=== PATIENT | female | born 1955 | race Caucasian/White ===

== ENCOUNTER 2021-03-07 15:58 | Outpatient (CLI) | payer MEDICARE, OTHER, SELFPAY | END 2021-03-07 15:59 | disposition home or self-care (01) | LOC: SPT 16:01 | PROVIDERS: Family Provider Nurse Practitioner Family; PCP Nurse Practitioner Family; Visit Provider Podiatrist Foot & Ankle Surgery | DX: Z46.89 Encounter for fitting and adjustment of other specified devices (principal); M76.72 Peroneal tendinitis, left leg | CPT/HCPCS: 97760; L4397 ==

== ENCOUNTER 2021-05-14 13:33 | Outpatient (CLI) | payer MEDICARE, OTHER, SELFPAY | END 2021-05-14 13:34 | disposition home or self-care (01) | LOC: SPT 13:34 | PROVIDERS: Family Provider Nurse Practitioner Family; PCP Nurse Practitioner Family; Visit Provider Podiatrist Foot & Ankle Surgery | DX: Z46.89 Encounter for fitting and adjustment of other specified devices (principal); M76.72 Peroneal tendinitis, left leg | CPT/HCPCS: 97760; L3030 ==

== ENCOUNTER → 2021-07-01 00:01 | Outpatient (BNVA) | payer MEDICARE, SELFPAY | PROVIDERS: Family Provider Nurse Practitioner Family; PCP Nurse Practitioner Family; Visit Provider Obstetrics & Gynecology | DX: N81.10 Cystocele, unspecified (principal) | CPT/HCPCS: 87086 ==

== ENCOUNTER 2021-08-06 12:53 | Outpatient (CLI) | payer MEDICARE, OTHER, SELFPAY ==
--- NOTE | 2021-08-06 13:06 | XR_ITS ---
WS: [id number] Lumbar spine, 3 views, 08/06/2021 Clinical Data: PAIN IN RIGHT LEG Comparison: None. Findings: No compression fractures or subluxation is seen. There is degenerative disc narrowing at L5-S1 with a 0.9 cm subluxation. Minimal osteoarthritis of the L1-L5 vertebral bodies is seen. The transverse pro cesses and SI joints are normal. XR/XR lumbar spine 2-3V* [id number] Impression: 1. Degenerative disc narrowing at L5-S1 with a 0.9 cm subluxation. 2. Minimal osteoarthritis from L1-L5 .
== END 2021-08-06 12:54 | disposition home or self-care (01) ==
LOC: RAD 12:56
PROVIDERS: PCP Nurse Practitioner Family; Visit Provider Nurse Practitioner Family
DX: M79.604 Pain in right leg (principal)
CPT/HCPCS: 72100

== ENCOUNTER 2021-10-18 10:41 | Outpatient (CLI) | payer MEDICARE, OTHER, SELFPAY ==
--- NOTE | 2021-10-18 11:05 | MM_ITS ---
WS: [id number] BILATERAL SCREENING DIGITAL MAMMOGRAM WITH CAD HISTORY: SCREENING COMPARISON: 03/17/2019 and 12/02/2017 Bilateral CC and MLO views submitted. Computer aided detection analyzed. Breast composition: There are scattered areas of fibroglandular density. No suspicious masses, microc alcifications or architectural distortion. MM/[place] [address] IMPRESSION: BI-RADS: 1-Negative FOLLOW UP: 1 Year Follow-up
== END 2021-10-18 10:42 | disposition home or self-care (01) ==
PROVIDERS: PCP Nurse Practitioner Family; Visit Provider Nurse Practitioner Family
DX: Z12.31 Encounter for screening mammogram for malignant neoplasm of breast (principal)
CPT/HCPCS: 77067

== ENCOUNTER → 2022-07-28 14:35 | Outpatient (BNVA) | payer MEDICARE, OTHER, SELFPAY | PROVIDERS: PCP Nurse Practitioner Family; Visit Provider Podiatrist Foot & Ankle Surgery | DX: M76.62 Achilles tendinitis, left leg (principal); M21.41 Flat foot [pes planus] (acquired), right foot; M21.42 Flat foot [pes planus] (acquired), left foot; M76.829 Posterior tibial tendinitis, unspecified leg | CPT/HCPCS: 73610; 99214 ==

== ENCOUNTER 2022-10-15 15:19 | Observation (INO) | payer MEDICARE, OTHER, SELFPAY ==
[2022-10-13 11:08] VITALS: BMI 35.1
[2022-10-13 11:48] LABS: Basophils % 0.5 %; Eosinophils % 0.5 %; Hematocrit 40.8 % (37.0-47.0); Lymphocytes # 2.1 10^3/uL (0.8-4.8); Lymphocytes % 31.9 %; Mean Corpuscular HGB Conc 31.9 g/dL (30.0-36.0); Mean Corpuscular Hemoglobin 28.6 pg (28.0-34.0); Mean Corpuscular Volume 89.7 fl (81-99); Mean Platelet Volume 9.8 fL (7.4-10.4); Monocytes # 0.3 10^3/uL (0.2-0.9); Neutrophils # 4.11 10^3/uL (1.8-7.7); Neutrophils % 61.9 %; Nucleated Red Blood Cells % 0 %; Platelet Count 222 10^3/cmm (130-400); Red Blood Count 4.55 10^6/uL (4.1-5.3); Red Cell Distribution Width 14.6 % (12.1-15.1); White Blood Count 6.6 10^3/uL (4.0-10.0)
[2022-10-13 11:59] LABS: INR 0.91 (0.8-1.2)
[2022-10-13 12:09] LABS: Add Urine Microscopic? YES; Alanine Aminotransferase 13 U/L (0-33); Alkaline Phosphatase 95 U/L (35-105); Anion Gap 12.3 (5-19); Aspartate Amino Transferase 16 U/L (0-32); Bilirubin Urine Neg (Negative); Blood Urea Nitrogen 17 mg/dL (8-23); Blood Urine 2+ (Negative); Calcium 9.8 mg/dL (8.5-10.5); Carbon Dioxide 28 mmol/L (22-29); Chloride 101 mmol/L (98-107); Globulin 3.2 g/dL (1.3-4.6); Glomerular Filtration Rate 122.3 mL/min (90-130); Glucose 97 mg/dL (65-115); Glucose Urine UA Norm (Normal); Ketones Urine Negative (Negative); Leukocyte Esterase Urine 2+ (Negative); Nitrate Urine Negative (Negative); Osmolality Calculated 285 mOsm/kg (285-295); Potassium 4.3 mmol/L (3.5-5.1); Protein Urine Neg (Negative); Sodium 137 mmol/L (136-145); Total Bilirubin 0.3 mg/dL (0.15-1.2); Total Protein 7.2 g/dL (6.6-8.7); Urine Appearance Clear (CLEAR); Urine Color Yellow (Yellow); Urobilinogen Urine Norm (Negative); pH Urine 6.5 (5-7)
[2022-10-13 12:10] LABS: Add Urine Culture? No; Bacteria Urine TRACE /hpf
--- NOTE | 2022-10-13 15:09 | P.ANESASSM_ITS ---
Pre-Anesthetic Assessment Height/Weight: Height 1.57 m Weight 87.09 kg Preop Diagnosis: Cystocele, stress urinary incontinence, vaginal prolapse Operation Date: 10/15/22 14:20 Proposed Procedures p Anterior colporrhaphy augmented with allograft 50348, Single incision mid- urethral sling 69671, N81.10(Not Applicable) - Nakul Carballo MD s Sling Single Incision Midurethral Sling(Not Applicable) - Nakul Carballo MD Familial anesthetic complications: none Was Beta Eugene taken within 24 hours: N/A Was Clonidine taken within 24 hours: N/A Social No alcohol and No tobacco Exam alert, oriented x 3, clear to auscultation bilaterally and regular rate & rhythm Airway Submandibular: within normal limits Cervical ROM: within normal limits Mallampati: Class II Dentition: full CV/HEM Hypertension GI Gastroesophageal Reflux Disease Metabolic Hyperlipidemia and Morbid Obesity Anesthetic Plan ASA status: 2 Anesthesia: General Medications/Allergies Home Medications Medication Instructions Recorded Confirmed Last Taken Type aspirin 81 mg tablet,delayed 81 mg PO DAILY 11/10/19 10/13/22 10/08/22 History release cetirizine 10 mg capsule (Zyrtec) 10 mg PO DAILY 07/01/21 10/13/22 10/12/22 History hydrochlorothiazide 12.5 mg tablet 25 mg PO DAILY 07/01/21 10/13/22 10/12/22 History irbesartan 150 mg tablet 150 mg PO DAILY 07/01/21 10/13/22 10/12/22 History multivitamin 1 tab PO DAILY 07/01/21 10/13/22 10/12/22 History omeprazole 20 mg capsule,delayed 20 mg PO .every other day 07/01/21 10/13/22 10/11/22 History release magnesium 200 mg tablet 200 mg PO DAILY 08/07/21 10/13/22 10/12/22 History muscle relaxer PO DAILY 08/07/21 10/13/22 Unknown History Custom Orthotics #1 ea 07/30/22 10/13/22 Unknown Rx fluticasone propionate 50 1 spray intranasal BID 09/09/22 10/13/22 Unknown History mcg/actuation nasal spray,suspension rosuvastatin 20 mg tablet 20 mg PO DAILY 09/09/22 10/13/22 10/12/22 History Allergies Allergy/AdvReac Type Severity Reaction Status Date / Time No Known Allergies Allergy Verified 10/13/22 09:34 [facility] Anesthesia Medical History Hypercholesteremia Diagnosed in her 50s and is managed by medication and diet by her primary care provider. Hypertension Diagnosed in her 50s and managed by her primary care provider. She does not have a pain medicine physician. No pertinent past medical history Denies diabetes, asthma, seizures, DVT/PE PCP: GABRIELA Tian Surgical History History of hysterectomy Performed in 1990--total abdominal hysterectomy done for heavy bleeding and cramping. Pfannenstiel incision History of tonsillectomy At the age of 8 History of tubal ligation 1982-- procedure through umbilicus S/P appendectomy 1997--appendectomy done at time of oophorectomy S/P oophorectomy Performed in March 1998--done because of pelvic pain and she was told there was a lot of scar tissue. Appendectomy done at the same time-done by a second Pfannenstiel incision. Family History Father Heart disease Hypertension Brother Heart disease Sister Heart disease Family/Other Heart disease cousin Mother Hyperlipidemia Hypertension Denies family history of Colon cancer Ovarian cancer Diabetes Breast cancer Uterine cancer Thyroid condition Stroke Social History Current occupational status: employed Current occupation: deaf and hard of hearing teacher Data Anesthesia 10/13/22 11:00 10/13/22 11:00 Short CBC 10/13/22 Range/Units 11:00 WBC 6.6 (4.0-10.0) 10^3/uL Hgb 13.0 (11.5-15.3) g/dL Hct 40.8 (37.0-47.0) % MCV 89.7 (81-99) fl Plt Count 222 (130-400) 10^3/cmm Neut % (Auto) 61.9 % Neut # (Auto) 4.11 (1.8-7.7) 10^3/uL BMP 10/13/22 11:00 Sodium 137 Potassium 4.3 Chloride 101 Carbon Dioxide 28 BUN 17 Creatinine 0.5 Glucose 97 Calcium 9.8 Liver Function 10/13/22 Range/Units 11:00 Total Bilirubin 0.3 (0.15-1.2) mg/dL AST 16 (0-32) U/L ALT 13 (0-33) U/L Alkaline Phosphatase 95 (35-105) U/L Albumin 4.0 (3.5-5.2) g/dL Urine 10/13/22 Range/Units 11:00 Urine Color Yellow (Yellow) Urine Appearance Clear (CLEAR) Urine pH 6.5 (5-7) Ur Specific [place] 1.010 (1.005-1.030) Urine Protein Neg (Negative) Urine Glucose (UA) Norm (Normal) Urine Ketones Negative (Negative) Urine Nitrate Negative (Negative) Urine Bilirubin Neg (Negative) Ur Leukocyte Esterase 2+ H (Negative) Urine RBC 5-10 H (0-2) /hpf Urine WBC 10-15 H (0-5) /hpf Blood Bank 10/13/22 11:00 Blood Type O Positive Rho(D) Type Positive Antibody Screen Negative Coags 10/13/22 11:00 PT 12.60 INR 0.91 Cardiac Studies: No Data to Display
[2022-10-15] VITALS (17 sets, daily range): BP systolic 124–175; BP diastolic 71–104; PULSE 59–90; RESP 12–20; TEMP 36.1–36.8; O2SAT 96–100
--- NOTE | 2022-10-15 12:53 | ECG_ITS ---
[facility] Test Date: 2022-10-15 Pat Name: Rayne Ramirez Department: Room: Gender: Female Cloth Reeler: : 1955 Requested By: Nakul Chapa Order Number: [id number] Audie MD: Heather Canada M.D. Measurements Intervals [place] Rate: 66 P: 51 VT: 150 QRS: 7 QRSD: 84 T: 1 QT: 386 QTc: 406 Interpretive Statements SINUS RHYTHM POSSIBLE ANTERIOR MYOCARDIAL INFARCTION , OF INDETERMINATE AGE [30 ms Q WAVE IN V3/V4, OR R < 0.2 mV IN V4] No previous ECG available for comparison Electronically Signed On 10-16-2022 10:11:51 DIVORCE MEDIATOR by Heather Canada M.D. [id number]
[2022-10-15] MEDS: enoxaparin 40 mg/0.4 mL Syringe SUBCUT (13:09)
[2022-10-15] MEDS: scopolamine 1.5 Patch 1 PATCH TRANSDERMA (13:10)
[2022-10-15] MEDS: sodium chloride 0.9% 1,000 ML 30 ML IV (13:11)
--- NOTE | 2022-10-15 13:40 | P.HPUD_ITS ---
Surgery/Procedure H&P Update DATE OF PROCEDURE: October 15, 2022 DATE H&P PERFORMED: 10/13/22 H&P UPDATE INFORMATION: I have reviewed H&P completed within last 30 days, I have examined patient prior to procedure and No changes to prior documentation PREOP DIAGNOSIS: Cystocele, stress urinary incontinence, vaginal prolapse PLANNED PROCEDURE: Operation Date: 10/15/22 14:10 Proposed Procedures p Anterior colporrhaphy augmented with allograft 60125, Single incision mid- urethral sling 93403, N81.10(Not Applicable) - Nakul Carballo MD s Sling Single Incision Midurethral Sling(Not Applicable) - Nakul Carballo MD
--- NOTE | 2022-10-15 13:41 | P.ANESUD_ITS ---
Pre-Anesthetic Update Pre-Anesthetic Assessment: Date of Surgery/Procedure: 10/15/22 Preop Elizabet gnosis: Cystocele, stress urinary incontinence, vaginal prolapse Proposed Procedure: Operation Date: 10/15/22 14:10 Proposed Procedures p Anterior colporrhaphy augmented with allograft 25975, Single incision mid- urethral sling 87928, N81.10(Not Applicable) - Nakul Carballo MD s Sling Single Incision Midurethral Sling(Not Applicable) - Nakul Carballo MD Any changes to Pre-Anesthetic Assessment?: No Last Intake: Intake Last Liquid Date 10/14/22 Last Liquid Time 22:00 Last Solid Date 10/14/22 Last Solid Time 19:00 Vitals: Temperature 97.2 F L 10/15/22 12:53 Temperature Source Temporal Artery S can 10/15/22 12:53 Pulse Rate 88 10/15/22 12:53 Respiratory Rate 16 10/15/22 12:53 Blood Pressure 175/104 10/15/22 12:53 Blood Pressure Kamla n 127 10/15/22 12:53 Pulse Oximetry 96 10/15/22 12:53 Oxygen Delivery Me thod 10/15/22 12:54 Exam: Pre-Anes Outpt Exam: alert, oriented x 3, clear to auscultation bilaterally and regular rate & rhythm Cardiac Studies: No Data to Display
[2022-10-15] MEDS: ceFOXitin 2,000 MG in sodium chloride 0.9% (plus) 50 ML 100 MG IV (13:47)
[2022-10-15] MEDS: estrogens Conjugated Cream 30 gm 1 APPLIC VAGINAL (15:05)
--- NOTE | 2022-10-15 15:15 | P.OP_ITS ---
Operative Report Date of procedure: October 15, 2022 Pre-op diagnosis: Preop Diagnosis Cystocele, stress urinary incontinence, vaginal prolapse Post-op diagnosis: Same as above Procedure done: Anterior colporrhaphy augmented with allograft. Single incision mid urethral sling. Cystoscopy Surgeon: Nakul Carballo MD Estimated blood loss (mL): 25 IV fluids (mL): 600 Urine output (mL): 300 Procedure: After obtaining informed consent, the patient was taken to the operating room and placed in the supine position, given general anesthesia, and prepped and draped in sterile fashion. The abdomen, vulva and vagina were prepped and draped in a sterile manner. A time out procedure was performed. The anterior vaginal mucosa beneath the midurethra was infiltrated with 0.5% Marcaine with epinephrine. A vertical midline incision was made beneath the midurethra, nearly 1.5 cm length. Careful submucosal dissection was performed bilaterally up to the interior portion of the inferior pubic ramus. The insertion of adductor longus tendon on the patient?s pubic ramus was identified as reference land eloisa. Palpated the notch along the internal edge of ischiopubic ramus where the adductor longus tendon and the inferior pubic ramus meet. The Altis single incision sling (SIS) was selected. Then the needle of the SIS inserted aiming at the location of this notch. One of the integrated self-fixating tips place onto the needle by sliding it over the end of the needle. The needle/sling assembly was inserted toward the location of identified reference notch making sure that the flat of the handle is perpendicular to the desired path. The needle was tracked along the posterior surface of the ischiopubic ramus until the midline eloisa on the mesh is approximately at the midline position under the urethra. The needle was removed and the same was repeated on the contralateral side until the appropriate sling tension under the urethra was achieved ensuring that the mesh lays flat. The needle was removed and vaginal incision was closed in a running interlocking fashion with 2-0 Vicryl. After obtaining informed consent, the patient was taken to the operating room and placed in the supine position, given general anesthesia, and prepped and draped in sterile fashion. The abdomen, vulva and vagina were prepped and draped in a sterile manner. A time out procedure was performed. The vaginal mucosa was then injected in the midline with normal saline. The vaginal mucosa was scored in the midline with the Bovie approximately 1 cm medial to the urethral meatus to 1 cm distal to the vaginal cuff.. This vaginal mucosa was then undermined and then incised in the midline with the Metzenbaum scissors. The lateral aspects of the vaginal mucosa were then grasped with the A llis clamps and the vaginal mucosa was then dissected off the underlying fascia with the Metzenbaum scissors. Again, there was noted to be quite a bit of oozing at the incision, which was controlled with cautery. After adequate dissection was performed, bilaterally. An Coloplast allograft was modified at time of application to fit spacea, 3x3 cm piece. The allograft wasplaced in front of cystocele ready to be implanted facing the vagina mucosa. Suture is placed at distal end of graft and placed towards vaginal cuff. Final suture is placed on proximal portion of the graft to complete the placement overlying the bladder. Then Interrupted vertical mattress sutures of 0 Vicryl were used to elevate the cystocele superiorly. The excessive vaginal mucosa was then trimmed with the Metzenbaum scissors and the vaginal mucosa was then reapproximated in the running interlocking fashion with 2-0 Vicryl. Then the George catheter was removed and cystoscope was inserted. The bladder was filled with sterile water. Complete evaluation of the bladder mucosa was performed noting no lacerations, dimpling, tears, bleeding of the mucosa or muscular layers. Both ureteral orifices were identified. Prompt excretion of urine from both ureteral orifices was noted. Cystoscope was withdrawn. The George catheter was replaced. Excellent hemostasis was obtained. A vaginal pack is placed overnight as po stoperative support for the vaginal tissues after graft placement and closure of vaginal incisions. Sponge, lap, needle, and instrument counts were correct times three. The patient was taken to the recovery room, awake and in stable condition.
--- NOTE | 2022-10-15 16:33 | ANE.PACU2 ---
Inpatient post-anesthesia follow up: Airway intact: Yes Vital signs: Temperature 97.6 F Pulse Rate 73 Respiratory Rate 16 Blood Pressure 134/79 Pulse Oximetry 99 Oxygen Delivery Me thod Room Air Oxygen Flow Rate Fraction of Inspir ed Oxygen Hydration adequate: Yes Nausea and vomiting: No Pain level: 3 Mental status: Baseline
[2022-10-15] MEDS: ketorolac 30 mg/mL INJ IVP ×2 (16:54→23:14)
[2022-10-15] MEDS: dextrose 5%-lactated ringers 1,000 ML 125 ML IV (16:55)
[2022-10-16] MEDS: dextrose 5%-lactated ringers 1,000 ML 125 ML IV (01:23)
[2022-10-16] MEDS: ketorolac 30 mg/mL INJ IVP (04:17)
[2022-10-16 04:32] VITALS: BP 128/78; PULSE 59; RESP 14; TEMP 37.2
[2022-10-16 04:34] LABS: Hematocrit 32.7 % (37.0-47.0); Hemoglobin 10.5 g/dL (11.5-15.3); Mean Corpuscular HGB Conc 32.1 g/dL (30.0-36.0); Mean Corpuscular Hemoglobin 28.6 pg (28.0-34.0); Mean Corpuscular Volume 89.1 fl (81-99); Mean Platelet Volume 9.6 fL (7.4-10.4); Platelet Count 174 10^3/cmm (130-400); Red Blood Count 3.67 10^6/uL (4.1-5.3); Red Cell Distribution Width 14.3 % (12.1-15.1); White Blood Count 7.1 10^3/uL (4.0-10.0)
--- NOTE | 2022-10-16 09:33 | PM.OBGYDC ---
Discharge Providers VALVE AND REGULATOR REPAIRER Date of Admission: 10/15/22 15:19 Date of Discharge: 10/16/22 Attending Provider at Admission: Nakul Carballo MD Attending Provider at Discharge: Nakul Carballo MD Primary VALVE AND REGULATOR REPAIRER: Nakul Carballo MD Primary Care Provider: GABRIELA Tian Reason for Visit Reason for Visit: N81.10, surgery Hospital Course Hospital Course Mrs. Ramirez 67-year-old female with a cystocele and stress urinary incontinence admitted for planned anterior colporrhaphy augmented with allograft and single incision mid urethral sling. The procedures were performed without complication. Overnight his admission was uneventful. She is found hemodynamically stable throughout the day 1. Tolerating diet well. Ambulating without difficulty. She is counseled regarding pelvic rest for 6 weeks (no sex, no tampons, no vaginal douches). Return to the emergency room if any fever, increased bleeding or pain. Physical Exam Narrative: GA: Alert and oriented ?3. HEENT: WNL. Heart: Regular rate and rhythm. Lungs: Clear to auscultation bilaterally. Abdomen: Bowel sounds present, nontender,. TELEPHONE ORDER SUPERVISOR: spotting bleeding. Extremities: No edema, no cyanosis, no calves pain. Urinary Catheter Management: George: Cath Placed During This Visit: yes Urinary Catheter Date of Insertion: 10/15/22 Urinary Catheter Time of Insertion: 14:15 History History History 3 Term 3 0 Miscarriages/Ectopic 0 Living Children 3 Discharge Data Studies Completed and Pending Laboratory Results WBC 7.1 10^3/uL (4.0-10.0) 10/16/22 04:25 RBC 3.67 10^6/uL (4.1-5.3) L 10/16/22 04:25 Hgb 10.5 g/dL (11.5-15.3) L 10/16/22 04:25 Hct 32.7 % (37.0-47.0) L 10/16/22 04:25 MCV 89.1 fl (81-99) 10/16/22 04:25 MCH 28.6 pg (28.0-34.0) 10/16/22 04:25 MCHC 32.1 g/dL (30.0-36.0) 10/16/22 04:25 RDW 14.3 % (12.1-15.1) 10/16/22 04:25 Plt Count 174 10^3/cmm (130-400) 10/16/22 04:25 MPV 9.6 fL (7.4-10.4) 10/16/22 04:25 Neut % (Auto) 61.9 % 10/13/22 11:00 Lymph % (Auto) 31.9 % 10/13/22 11:00 [place] % (Auto) 5.0 % 10/13/22 11:00 Eos % (Auto) 0.5 % 10/13/22 11:00 Baso % (Auto) 0.5 % 10/13/22 11:00 Neut # (Auto) 4.11 10^3/uL (1.8-7.7) 10/13/22 11:00 Lymph # (Auto) 2.1 10^3/uL (0.8-4.8) 10/13/22 11:00 [place] # (Auto) 0.3 10^3/uL (0.2-0.9) 10/13/22 11:00 Eos # (Auto) 0.0 10^3/uL (0.0-0.8) 10/13/22 11:00 Baso # (Auto) 0.0 10^3/uL (0.0-0.1) 10/13/22 11:00 Nucleated RBC % (auto) 0 % 10/13/22 11:00 Nucleated RBCs # 0.0 /100WBC 10/13/22 11:00 PT 12.60 SECONDS (12.1-14.9) 10/13/22 11:00 INR 0.91 (0.8-1.2) 10/13/22 11:00 Sodium 137 mmol/L (136-145) 10/13/22 11:00 Potassium 4.3 mmol/L (3.5-5.1) 10/13/22 11:00 Chloride 101 mmol/L (98-107) 10/13/22 11:00 Carbon Dioxide 28 mmol/L (22-29) 10/13/22 11:00 Anion Gap 12.3 (5-19) 10/13/22 11:00 BUN 17 mg/dL (8-23) 10/13/22 11:00 Creatinine 0.5 mg/dL (0.5-0.9) 10/13/22 11:00 GFR Calculation 122.3 mL/min (90-130) 10/13/22 11:00 Glucose 97 mg/dL (65-115) 10/13/22 11:00 Calculated Osmolality 285 mOsm/kg (285-295) 10/13/22 11:00 Calcium 9.8 mg/dL (8.5-10.5) 10/13/22 11:00 Total Bilirubin 0.3 mg/dL (0.15-1.2) 10/13/22 11:00 AST 16 U/L (0-32) 10/13/22 11:00 ALT 13 U/L (0-33) 10/13/22 11:00 Alkaline Phosphatase 95 U/L (35-105) 10/13/22 11:00 Total Protein 7.2 g/dL (6.6-8.7) 10/13/22 11:00 Albumin 4.0 g/dL (3.5-5.2) 10/13/22 11:00 Globulin 3.2 g/dL (1.3-4.6) 10/13/22 11:00 Urine Color Yellow (Yellow) 10/13/22 11:00 Urine Appearance Clear (CLEAR) 10/13/22 11:00 Urine pH 6.5 (5-7) 10/13/22 11:00 Ur Specific [place] 1.010 (1.005-1.030) 10/13/22 11:00 Urine Protein Neg (Negative) 10/13/22 11:00 Urine Glucose (UA) Norm (Normal) 10/13/22 11:00 Urine Ketones Negative (Negative) 10/13/22 11:00 Urine Blood 2+ (Negative) H 10/13/22 11:00 Urine Nitrate Negative (Negative) 10/13/22 11:00 Urine Bilirubin Neg (Negative) 10/13/22 11:00 Urine Urobilinogen Norm mg/dL (Negative) 10/13/22 11:00 Ur Leukocyte Esterase 2+ (Negative) H 10/13/22 11:00 Urine RBC 5-10 /hpf (0-2) H 10/13/22 11:00 Urine WBC 10-15 /hpf (0-5) H 10/13/22 11:00 Ur Squamous Epith Cells 10-15 /hpf (0-5) H 10/13/22 11:00 Amorphous Sediment Not Reportable 10/13/22 11:00 Urine Bacteria Trace /hpf (NONE) 10/13/22 11:00 Blood Type O Positive 10/13/22 11:00 Rho(D) Type Positive 10/13/22 11:00 Antibody Screen Negative 10/13/22 11:00 Vitals Last Vital Signs Temp 99.0 F 10/16/22 04:32 Pulse 59 L 10/16/22 04:32 Resp 14 10/16/22 04:32 BP 128/78 10/16/22 04:32 Pulse Ox 100 10/15/22 16:42 O2 Del Method 10/15/22 18:42 Discharge Plan Discharge Patient Disposition: Home Condition: Stable Prescriptions: New hydrocodone-acetaminophen 5-325 mg tablet 1 tab PO Q4H PRN (Reason: pain) Qty: 10 0RF acetaminophen 325 mg capsule 325 mg PO Q4H PRN (Reason: fever or pain) Qty: 60 0RF ibuprofen 800 mg tablet 800 mg PO TID PRN (Reason: pain) Qty: 60 0RF docusate sodium [Colace] 100 mg capsule 100 mg PO BID Qty: 60 0RF ferrous sulfate [Iron (ferrous sulfate)] 325 mg (65 mg iron) tablet 325 mg PO BID Qty: 60 0RF Continued aspirin 81 mg tablet,delayed release (DR/EC) 81 mg PO DAILY hydrochlorothiazide 12.5 mg tablet 25 mg PO DAILY omeprazole 20 mg capsule,delayed release(DR/EC) 20 mg PO .every other day irbesartan 150 mg tablet 150 mg PO DAILY Zyrtec 10 mg capsule 10 mg PO DAILY multivitamin Tablet 1 tab PO DAILY fluticasone propionate 50 mcg/actuation spray,suspension 1 spray intranasal BID Rx Instructions: administer into each nostril rosuvastatin 20 mg tablet 20 mg PO DAILY magnesium 200 mg tablet 200 mg PO DAILY (DME) Custom Orthotics See Rx Instructions .Route .MEDSUPPLY Qty: 1 0RF Rx Instructions: As directed by [facility] [employer] [facility] Discharge Orders: Discharge Order (Routine); Ordered 10/16/22 Ordered By: Nakul Carballo Discharge Diet: Usual diet Discharge Activity: Limit activity as instructed Patient Instructions: General Anesthesia (GEN), Cystoscopy (GEN), Anterior Vaginal Repair (GEN), OB Abdominal Surgery - [facility], OB Discharge Report, OB Food/Drug Interaction Guide, Opioid Safety Activity Restrictions/Additional Instructions: 1. Please call [facility] clinic on next working day to make your post-operative appointment in 2 weeks. 2. Please stay home until you come back to the clinic on first post-operative check up. 3. Please follow instructions on your medications CAREFULLY. 4. If you have abdominal incision, do not cover it unless dressing is necessary because of drainage. OK to shower, but avoid bath. Leave steri-strips until they fall off. If they are still on one week after surgery, you may remove them. 5. If you had vaginal surgery or vaginal repair, Dr. Carballo may instruct you to take SITZ bath. 6. Yellow, blood tinged odorous vaginal discharge is usually normal after hysterectomy or vaginal surgeries. 7. No sexual intercourse, tampons, or douches until you are completely released from the post-operative care. 8. Avoid constipation by eating right and maybe using some Metamucil or Milk of Magnesia. 9. All prescription refills are given during the working hours. Please do no wait till it runs out. Call the clinic at [phone] before your medication runs out. The clinic will get in touch with your doctor to prescribe medications if necessary. 10. Please remain within 40 mile radius from our hospital because emergencies do happen now and then during the post-operative period. 11. If you have stairs at home, take one step at a time slowly and minimize the number of trips. It helps to stay in one floor for the next few days. No lifting except what you can lift by one hand until you are released from the post-operative care. 12. Driving is discouraged until you are well healed. It may be 3-4 weeks before you feel strong enough to drive. You should be able to turn and look through the rear window without pain and you should be able to push the brake pedal very hard without pain before you drive. No fast rules, but SAFETY should be your primary concern. DO NOT drive if you are on sedating medications such as narcotics. 13. Call the clinic (during working hours) to make urgent appointment or go to the Emergency room, if any of the following occurs: i. Vaginal bleeding becomes heavy, more than a period. ii. Incision becomes red and sore, or drains pus. iii. Your temperature is over 100.4 or you have chill. iv. IV site becomes red and swollen (a little ``knot?? is usually OK) v. Persistent nausea and vomiting vi. Persistent constipation or diarrhea vii. Rash or allergic reaction to medications. Discharge Attestations VALVE AND REGULATOR REPAIRER Time Spent in Discharge Care*: greater than 30 min Coding Level of Care Code Acute Code for Chg Fwd
--- NOTE | 2022-10-16 10:56 | PC.NURSE ---
PVR bladder scan Patient voided but missed the urine hat, toilet water was visibly colored with urine. Bladder scan revealed 75ml remaining in bladder. Called Dr Carballo and he stated patient may be discharged at this time.
[2022-10-16 11:08] VITALS: BP 148/69; PULSE 87; TEMP 36.7; O2SAT 98
[2022-10-16 11:39] VITALS: BP 148/69; PULSE 87; TEMP 36.7; O2SAT 98
== END 2022-10-16 11:30 | disposition home or self-care (01) ==
LOC: OBGYN 15:21
PROVIDERS: Admitting Provider Obstetrics & Gynecology; PCP Nurse Practitioner Family; Visit Provider Obstetrics & Gynecology
PROC: 0JQC0ZZ Repair Pelvic Region Subcutaneous Tissue and Fascia, Open Approach (ICD-10-PCS; CPT 57240; principal; 2022-10-15 14:00)
PROC: (CPT 57288; 2022-10-15 14:00)
PROC: 0TJB8ZZ Inspection of Bladder, Via Natural or Artificial Opening Endoscopic (ICD-10-PCS; CPT 52000; 2022-10-15 14:00)
DX: N81.10 Cystocele, unspecified (principal); N39.3 Stress incontinence (female) (male); I10 Essential (primary) hypertension; K21.9 Gastro-esophageal reflux disease without esophagitis; E78.5 Hyperlipidemia, unspecified; E66.01 Morbid (severe) obesity due to excess calories; Z68.35 Body mass index [BMI] 35.0-35.9, adult; Z79.82 Long term (current) use of aspirin; E78.00 Pure hypercholesterolemia, unspecified
CPT/HCPCS: 57240; 57288; 36415; 51798; 80053; 81001; 85025; 85027; 85610; 86850; 86900; 93005; C1713; C1762; G0378; J0694; J1100; J1650; J1885; J2405; J2704; J2710; J3010; J3490; J7030; J7121; Q9968

== ENCOUNTER 2022-10-30 09:51 | Outpatient (CLI) | payer MEDICARE, OTHER, SELFPAY ==
--- NOTE | 2022-10-30 09:58 | MM_ITS ---
WS: [id number] BILATERAL SCREENING DIGITAL TOMOSYNTHESIS MAMMOGRAM WITH CAD HISTORY: Screening. COMPARISON: 10/18/2021, 03/17/2019 Bilateral CC and MLO views with tomosynthesis and synthetic mammography submitted. Computer aided det ection analyzed. Breast composition: There are scattered areas of fibroglandular density. No suspicious masses, microc alcifications or architectural distortion. Vascular calcifications. MM/[place] [id number] IMPRESSION: BI-RADS: 2-Benign FOLLOW UP: 1 Year Follow-up
== END 2022-10-30 09:52 | disposition home or self-care (01) ==
LOC: RAD 09:52
PROVIDERS: PCP Nurse Practitioner Family; Visit Provider Obstetrics & Gynecology
DX: Z12.31 Encounter for screening mammogram for malignant neoplasm of breast (principal)
CPT/HCPCS: 77063; 77067

== ENCOUNTER 2023-10-06 11:47 | Observation (INO) | payer MEDICARE, OTHER, SELFPAY ==
[2023-09-30 11:35] LABS: Add Urine Microscopic? NO; Charge for UA Resulting for Rev
[2023-09-30 11:42] LABS: Basophils % 0.4 %; Eosinophils # 0.1 10^3/uL (0.0-0.8); Eosinophils % 1.3 %; Hematocrit 42.4 % (36-47); Lymphocytes # 1.7 10^3/uL (0.8-4.8); Lymphocytes % 31.2 %; Mean Corpuscular Hemoglobin 28.9 pg (27-33); Mean Corpuscular Volume 96.4 fl (85-98); Mean Platelet Volume 9.5 fL (7.4-10.4); Monocytes # 0.3 10^3/uL (0.2-0.9); Monocytes % 5.4 %; Neutrophils % 61.5 %; Nucleated Red Blood Cells % 0 %; Platelet Count 194 10^3/cmm (157-399); Red Cell Distribution Width 14.4 % (12.1-15.1); White Blood Count 5.36 10^3/uL (3.29-11.43)
[2023-09-30 11:55] LABS: Bilirubin Urine Neg (Negative); Blood Urine Neg (Negative); Glucose Urine UA Norm (Normal); Ketones Urine Negative (Negative); Leukocyte Esterase Urine Negative (Negative); Nitrate Urine Negative (Negative); Protein Urine Neg (Negative); Urine Appearance Clear (CLEAR); Urine Color Yellow (Yellow); Urobilinogen Urine Norm (Negative); pH Urine 7 (5-7)
--- NOTE | 2023-09-30 11:55 | P.ANESASSM_ITS ---
Pre-Anesthetic Assessment Height/Weight: Height 1.57 m Operation Date: 10/06/23 09:35 Proposed Procedures p Posterior colporrhaphy 28308,N81.6(Not Applicable) - Nakul Carballo MD Familial anesthetic complications: none Was Beta Eugene taken within 24 hours: N/A Was Clonidine taken within 24 hours: N/A Social No alcohol and No tobacco Exam alert, oriented x 3, clear to auscultation bilaterally and regular rate & rhythm Airway Submandibular: within normal limits Cervical ROM: within normal limits Mallampati: Class II Dentition: full CV/HEM Hypertension GI Gastroesophageal Reflux Disease Metabolic Hyperlipidemia Anesthetic Plan ASA status: 2 Anesthesia: General Medications/Allergies Home Medications Medication Instructions Recorded Confirmed Last Taken Type aspirin 81 mg tablet,delayed 81 mg PO DAILY 11/10/19 09/30/23 09/30/23 History release cetirizine 10 mg capsule (Zyrtec) 10 mg PO DAILY 07/01/21 09/30/23 09/30/23 History hydrochlorothiazide 12.5 mg tablet 25 mg PO DAILY 07/01/21 09/30/23 09/30/23 History irbesartan 150 mg tablet 150 mg PO DAILY 07/01/21 09/30/23 09/30/23 History multivitamin 1 tab PO DAILY 07/01/21 09/30/23 09/30/23 History magnesium 200 mg tablet 200 mg PO DAILY 08/07/21 09/30/23 09/30/23 History Custom Orthotics #1 ea 07/30/22 09/24/23 Unknown Rx fluticasone propionate 50 1 spray intranasal BID 09/09/22 09/30/23 1 Week Ago History mcg/actuation nasal ~10/08/22 spray,suspension rosuvastatin 20 mg tablet 20 mg PO DAILY 09/09/22 09/30/23 09/30/23 History acetaminophen 325 mg capsule 325 mg PO Q4H PRN fever or pain 10/16/22 09/30/23 Unknown Rx #60 caps docusate sodium 100 mg capsule 100 mg PO BID #60 caps 10/16/22 09/30/23 09/29/23 Rx (Colace) ibuprofen 800 mg tablet 800 mg PO TID PRN pain #60 tabs 10/16/22 09/30/23 09/27/23 Rx oxybutynin chloride 10 mg 10 mg PO DAILY #90 tabs 10/16/23 01/03/24 01/03/24 Rx tablet,extended release 24 hr pantoprazole 40 mg tablet,delayed 40 mg PO DAILY 09/24/23 09/30/23 09/30/23 History release (Protonix) Allergies Allergy/AdvReac Type Severity Reaction Status Date / Time No Known Allergies Allergy Verified 09/24/23 09:31 [facility] Anesthesia Medical History Hypercholesteremia Diagnosed in her 50s and is managed by medication and diet by her primary care provider. Hypertension Diagnosed in her 50s and managed by her primary care provider. She does not have a lead data architect. No pertinent past medical history Denies diabetes, asthma, seizures, DVT/PE PCP: GABRIELA Tian Surgical History History of hysterectomy Performed in 1990--total abdominal hysterectomy done for heavy bleeding and cramping. Pfannenstiel incision History of tonsillectomy At the age of 8 History of tubal ligation 1982-- procedure through umbilicus S/P appendectomy 1997--appendectomy done at time of oophorectomy S/P oophorectomy Performed in March 1998--done because of pelvic pain and she was told there was a lot of scar tissue. Appendectomy done at the same time-done by a second Pfannenstiel incision. Family History Father Heart disease Hypertension Brother Heart disease Sister Heart disease Family/Other Heart disease cousin Mother Hyperlipidemia Hypertension Denies family history of Colon cancer Ovarian cancer Diabetes Breast cancer Uterine cancer Thyroid disease Stroke Social History Substance/Drug Use: never Current occupational status: employed Current occupation: teacher advisor Data Anesthesia 09/30/23 11:10 09/30/23 11:10 Short CBC 09/30/23 Range/Units 11:10 WBC 5.36 (3.29-11.43) 10^3/uL Hgb 12.70 (11.27-16.99) g/dL Hct 42.4 (36-47) % MCV 96.4 (85-98) fl Plt Count 194 (157-399) 10^3/cmm Neut % (Auto) 61.5 % Neut # (Auto) 3.30 (1.8-7.7) 10^3/uL Cardiac Studies: 2 No Data to Display
[2023-09-30 12:06] LABS: Alanine Aminotransferase 13 U/L (0-33); Albumin Level 3.8 g/dL (3.5-5.2); Alkaline Phosphatase 102 U/L (35-105); Anion Gap 14.2 (5-19); Aspartate Amino Transferase 15 U/L (0-32); Blood Urea Nitrogen 14 mg/dL (8-23); Calcium 9.1 mg/dL (8.5-10.5); Carbon Dioxide 27 mmol/L (22-29); Chloride 102 mmol/L (98-107); Globulin 2.7 g/dL (1.3-4.6); Glomerular Filtration Rate 98.8 mL/min (90-130); Glucose 100 mg/dL (65-115); Osmolality Calculated 289 mOsm/kg (285-295); Potassium 4.2 mmol/L (3.5-5.1); Sodium 139 mmol/L (136-145); Total Bilirubin 0.3 mg/dL (0.15-1.2); Total Protein 6.5 g/dL (6.6-8.7)
[2023-10-06] VITALS (18 sets, daily range): BP systolic 98–152; BP diastolic 62–107; PULSE 54–87; RESP 7–20; TEMP 36.2–36.9; O2SAT 90–100; BMI 33.0
--- NOTE | 2023-10-06 07:04 | W.PM.OPSUD ---
Surgery/Procedure H&P Update DATE OF PROCEDURE: October 06, 2023 DATE H&P PERFORMED: 09/24/23 H&P UPDATE INFORMATION: I have reviewed H&P completed within last 30 days, I have examined patient prior to procedure and No changes to prior documentation PREOP DIAGNOSIS: Rectocele stage 2 PLANNED PROCEDURE: Operation Date: 10/06/23 08:10 Proposed Procedures p Posterior colporrhaphy 00812,N81.6(Not Applicable) - Nakul Carballo MD
[2023-10-06] MEDS: scopolamine 1.5 Patch 1 PATCH TRANSDERMA (07:08)
[2023-10-06] MEDS: sodium chloride 0.9% 500 ML IV (07:09)
[2023-10-06] MEDS: enoxaparin 30 mg/0.3 mL Syringe SUBCUT (07:09)
[2023-10-06] MEDS: sodium chloride 0.9% 1,000 ML 30 ML IV (08:01)
--- NOTE | 2023-10-06 08:02 | P.ANESUD_ITS ---
Pre-Anesthetic Update Pre-Anesthetic Assessment: Date of Surgery/Procedure: 10/06/23 Preop Elizabet gnosis: Rectocele stage 2 Proposed Procedure: Operation Date: 10/06/23 08:10 Proposed Procedures p Posterior colporrhaphy 21038,N81.6(Not Applicable) - Nakul Carballo MD Any changes to Pre-Anesthetic Assessment?: No Last Intake: Intake Last Liquid Date 10/05/23 Last Liquid Time 17:00 Last Solid Date 10/05/23 Last Solid Time 17:00 Vitals: Temperature 97.2 F L 10/06/23 07:20 Temperature Source Temporal Artery S can 10/06/23 07:20 Pulse Rate 79 10/06/23 07:20 Pulse Rhythm Regular 10/06/23 06:56 Pulse Strength 3+ Normal 10/06/23 06:56 Respiratory Rate 18 10/06/23 07:20 Blood Pressure 139/80 10/06/23 07:20 Blood Pressure Kamla n 99 10/06/23 07:20 Pulse Oximetry 97 10/06/23 07:20 Oxygen Delivery Me thod Room Air 10/06/23 07:20 Exam: Pre-Anes Outpt Exam: alert and oriented x 3 Cardiac Studies: No Data to Display
[2023-10-06] MEDS: ceFAZolin 2,000 MG in sodium chloride 0.9% (plus) 50 ML 100 MG IV (09:11)
[2023-10-06] MEDS: lidocaine-epi 2% 20 mL INJ 10 ML INJECTION (09:39)
[2023-10-06] MEDS: estrogens Conjugated Cream 30 gm 1 APPLIC VAGINAL (09:58)
--- NOTE | 2023-10-06 10:48 | P.OP_ITS ---
Operative Report Date of procedure: October 06, 2023 Pre-op diagnosis: Rectocele Post-op diagnosis: same Post-op findings: Stage I cystocele Procedure done: Posterior colporrhaphy Surgeon: Nakul Carballo MD Estimated blood loss (mL): 25 IV fluids (mL): 80 Urine output (mL): 600 Complications: None Procedure: After obtaining informed consent, the patient was taken to the operating room and placed in the supine position, given general anesthesia, and prepped and draped in sterile fashion. The abdomen, vulva and vagina were prepped and draped in a sterile manner. A time out procedure was performed. The vaginal mucosa was then injected in the midline with 2% lidocaine with epinephrine. The vaginal mucosa was scored. An incision was made across the introitus. Metzenbaum scissors were used to tunnel beneath posterior vaginal mucosa until the apex of the rectocele bulge was reached. At this point, the rectum was from the posterior vaginal mucosa using sharp and blunt dissection, and the rectal bulge imbricated in the midline with interrupted sutures of 2-0 vicryl suture. Levator ani muscles on either side were approximat ed in the midline with interrupted 0 Vicryl sutures. Excess posterior vaginal mucosa was excised, and the vaginal episiotomy was repaired by approximating the posterior vaginal mucosa with a suture of Vicryl 2-0. Excellent hemostasis was obtained. A vaginal pack is placed overnight as postoperative support for the vaginal tissues after closure of vaginal incisions. Sponge, lap, needle, and instrument counts were correct times three. The patient was taken to the recovery room, awake and in stable condition.
[2023-10-06] MEDS: dextrose 5%-lactated ringers 1,000 ML 125 ML IV ×2 (12:55→22:08)
--- NOTE | 2023-10-06 16:56 | ANE.PACU2 ---
Inpatient post-anesthesia follow up: Airway intact: Yes Vital signs: Temperature 98.0 F Pulse Rate 71 Respiratory Rate 18 Blood Pressure 129/71 Pulse Oximetry 95 Oxygen Delivery Me thod Room Air Oxygen Flow Rate 8 Fraction of Inspir ed Oxygen Hydration adequate: Yes Nausea and vomiting: No Pain level: 2 Mental status: Baseline
[2023-10-06] MEDS: docusate sodium 100 mg Capsule PO (18:46)
[2023-10-07] MEDS: HYDROcodone-acetaminophen 5-325 mg Tablet PO (04:35)
[2023-10-07 04:41] VITALS: BP 107/67; PULSE 59; RESP 15; TEMP 37; O2SAT 96
--- NOTE | 2023-10-07 04:49 | PC.NURSE ---
vaginal packing removed @0449. Minimal blood noted on packing. Pt tolerated procedure well.
[2023-10-07 04:55] LABS: Hematocrit 32.7 % (36-47); Mean Corpuscular Hemoglobin 29.3 pg (27-33); Mean Corpuscular Volume 88.9 fl (85-98); Mean Platelet Volume 10.2 fL (7.4-10.4); Platelet Count 152 10^3/cmm (157-399); Red Blood Count 3.68 10^6/uL (3.85-5.65); Red Cell Distribution Width 14.4 % (12.1-15.1)
[2023-10-07] MEDS: aspirin 81 mg EC Tablet PO (09:15)
[2023-10-07] MEDS: atorvastatin 40 mg Tablet PO (09:16)
[2023-10-07] MEDS: hydroCHLOROthiazide 25 mg Tablet PO (09:16)
[2023-10-07] MEDS: ibuprofen 800 mg tablet PO (09:16)
[2023-10-07] MEDS: multivitamin therapeutic Tablet 1 TAB PO (09:16)
[2023-10-07] MEDS: pantoprazole DR 40 mg Tablet PO (09:16)
[2023-10-07] MEDS: docusate sodium 100 mg Capsule PO (09:16)
[2023-10-07] MEDS: magnesium oxide 400 mg tablet 200 MG PO (09:17)
[2023-10-07] MEDS: oxybutynin chloride XL 5 MG TABLET 10 MG PO (09:25)
[2023-10-07 09:28] VITALS: BP 98/62; PULSE 56; RESP 17; TEMP 36.7; O2SAT 93
--- NOTE | 2023-10-07 09:34 | PM.OBGYDC ---
Discharge Providers CLIENT RELATIONS SPECIALIST Date of Admission: 10/06/23 11:47 Date of Discharge: 10/07/23 Attending Provider at Admission: Nakul Carballo MD Attending Provider at Discharge: Nakul Carballo MD Primary CLIENT RELATIONS SPECIALIST: Nakul Carballo MD Primary Care Provider: GABRIELA Tian Reason for Visit Reason for Visit: N81.6 Hospital Course Hospital Course Mrs. Wall 68-year-old female with a history of rectocele/posterior vaginal defect. Admitted for planned posterior colporrhaphy. The procedure was performed without complications. Overnight observation was uneventful. Tolerating diet well. Patient was advised about soft mechanical diet and avoid food items that cause constipation. Ambulating without difficulty. Patient was counseled regarding pelvic rest for 6 weeks (no sex, no tampons, no vaginal douches). Return to the emergency room if any fever, increased bleeding or pain. Physical Exam Narrative: GA: Alert and oriented ?3. HEENT: WNL. Heart: Regular rate and rhythm. Lungs: Clear to auscultation bilaterally. Abdomen: Bowel sounds present, nontender. RIM TURNING FINISHER: Spotting bleeding. Extremities: No edema, no cyanosis, no calves pain. Urinary Catheter Management: George: Cath Placed During This Visit: yes, but has since been removed by the nurse Reason for Continuing Indwelling Catheter: Decision to DC Catheter Urinary Catheter Date of Insertion: 10/06/23 Urinary Catheter Time of Insertion: 09:39 Date Urinary Catheter Removed: 10/07/23 Time Urinary Catheter Discontinued: 04:49 History History History 3 Term 3 0 Miscarriages/Ectopic 0 Living Children 3 Discharge Data Studies Completed and Pending Laboratory Results WBC 6.70 10^3/uL (3.29-11.43) 10/07/23 04:37 RBC 3.68 10^6/uL (3.85-5.65) L 10/07/23 04:37 Hgb 10.80 g/dL (11.27-16.99) L 10/07/23 04:37 Hct 32.7 % (36-47) L 10/07/23 04:37 MCV 88.9 fl (85-98) 10/07/23 04:37 MCH 29.3 pg (27-33) 10/07/23 04:37 MCHC 33.0 g/dL (30-55) 10/07/23 04:37 RDW 14.4 % (12.1-15.1) 10/07/23 04:37 Plt Count 152 10^3/cmm (157-399) L 10/07/23 04:37 MPV 10.2 fL (7.4-10.4) 10/07/23 04:37 Neut % (Auto) 61.5 % 09/30/23 11:10 Lymph % (Auto) 31.2 % 09/30/23 11:10 [place] % (Auto) 5.4 % 09/30/23 11:10 Eos % (Auto) 1.3 % 09/30/23 11:10 Baso % (Auto) 0.4 % 09/30/23 11:10 Neut # (Auto) 3.30 10^3/uL (1.8-7.7) 09/30/23 11:10 Lymph # (Auto) 1.7 10^3/uL (0.8-4.8) 09/30/23 11:10 [place] # (Auto) 0.3 10^3/uL (0.2-0.9) 09/30/23 11:10 Eos # (Auto) 0.1 10^3/uL (0.0-0.8) 09/30/23 11:10 Baso # (Auto) 0.0 10^3/uL (0.0-0.1) 09/30/23 11:10 Nucleated RBC % (auto) 0 % 09/30/23 11:10 Nucleated RBCs # 0.0 /100WBC 09/30/23 11:10 Sodium 139 mmol/L (136-145) 09/30/23 11:10 Potassium 4.2 mmol/L (3.5-5.1) 09/30/23 11:10 Chloride 102 mmol/L (98-107) 09/30/23 11:10 Carbon Dioxide 27 mmol/L (22-29) 09/30/23 11:10 Anion Gap 14.2 (5-19) 09/30/23 11:10 BUN 14 mg/dL (8-23) 09/30/23 11:10 Creatinine 0.6 mg/dL (0.5-0.9) 09/30/23 11:10 GFR Calculation 98.8 mL/min (90-130) 09/30/23 11:10 Glucose 100 mg/dL (65-115) 09/30/23 11:10 Calculated Osmolality 289 mOsm/kg (285-295) 09/30/23 11:10 Calcium 9.1 mg/dL (8.5-10.5) 09/30/23 11:10 Total Bilirubin 0.3 mg/dL (0.15-1.2) 09/30/23 11:10 AST 15 U/L (0-32) 09/30/23 11:10 ALT 13 U/L (0-33) 09/30/23 11:10 Alkaline Phosphatase 102 U/L (35-105) 09/30/23 11:10 Total Protein 6.5 g/dL (6.6-8.7) L 09/30/23 11:10 Albumin 3.8 g/dL (3.5-5.2) 09/30/23 11:10 Globulin 2.7 g/dL (1.3-4.6) 09/30/23 11:10 Urine Color Yellow (Yellow) 09/30/23 10:58 Urine Appearance Clear (CLEAR) 09/30/23 10:58 Urine pH 7 (5-7) 09/30/23 10:58 Ur Specific [place] 1.010 (1.005-1.030) 09/30/23 10:58 Urine Protein Neg (Negative) 09/30/23 10:58 Urine Glucose (UA) Norm (Normal) 09/30/23 10:58 Urine Ketones Negative (Negative) 09/30/23 10:58 Urine Blood Neg (Negative) 09/30/23 10:58 Urine Nitrate Negative (Negative) 09/30/23 10:58 Urine Bilirubin Neg (Negative) 09/30/23 10:58 Urine Urobilinogen Norm mg/dL (Negative) 09/30/23 10:58 Ur Leukocyte Esterase Negative (Negative) 09/30/23 10:58 Blood Type O Positive 10/06/23 08:36 Rho(D) Type Rh positive 10/06/23 08:36 Antibody Screen Negative 10/06/23 08:36 Vitals Last Vital Signs Temp 98.0 F 10/07/23 09:28 Pulse 56 L 10/07/23 09:28 Resp 17 10/07/23 09:28 BP 98/62 10/07/23 09:28 Pulse Ox 93 10/07/23 09:28 O2 Del Method Room Air 10/07/23 09:28 O2 Flow Rate 8 10/06/23 11:00 Results Labs OB ([facility]): Blood Type O Positive 10/06/23 Antibody Screen Negative 10/06/23 Hct 32.7 % (36-47) L 10/07/23 Hgb 10.80 g/dL (11.27-16.99) L 10/07/23 Rho(D) Type Rh positive 10/06/23 Plt Count 152 10^3/cmm (157-399) L 10/07/23 Micro Urine Specimen 07/01/21 Discharge Plan Discharge Patient Disposition: Home Condition: Stable Prescriptions: New hydrocodone-acetaminophen 5-325 mg tablet 1 tab PO Q4H PRN (Reason: pain) Qty: 10 0RF acetaminophen 325 mg capsule 325 mg PO Q4H PRN (Reason: fever or pain) Qty: 60 0RF ibuprofen 800 mg tablet 800 mg PO TID PRN (Reason: pain) Qty: 60 0RF Continued aspirin 81 mg tablet,delayed release (DR/EC) 81 mg PO DAILY hydrochlorothiazide 12.5 mg tablet 25 mg PO DAILY irbesartan 150 mg tablet 150 mg PO DAILY Zyrtec 10 mg capsule 10 mg PO DAILY multivitamin Tablet 1 tab PO DAILY fluticasone propionate 50 mcg/actuation spray,suspension 1 spray intranasal BID Rx Instructions: administer into each nostril rosuvastatin 20 mg tablet 20 mg PO DAILY magnesium 200 mg tablet 200 mg PO DAILY pantoprazole [Protonix] 40 mg tablet,delayed release (DR/EC) 40 mg PO DAILY oxybutynin chloride 10 mg tablet extended release 24hr 10 mg PO DAILY Qty: 90 3RF (DME) Custom Orthotics See Rx Instructions .Route .MEDSUPPLY Qty: 1 0RF Rx Instructions: As directed by [facility] [place] [place] PATIENTS ibuprofen 800 mg tablet 800 mg PO TID PRN (Reason: pain) Qty: 60 0RF docusate sodium [Colace] 100 mg capsule 100 mg PO BID Qty: 60 0RF acetaminophen 325 mg capsule 325 mg PO Q4H PRN (Reason: fever or pain) Qty: 60 0RF Discharge Orders: Discharge Order (Routine); Ordered 10/07/23 Ordered By: Nakul Carballo Referrals: Nakul Carballo MD [Physician] - 10/21/23 1:45 pm (* Your post op appointments are on 10/21/2023 at 1:45 and 11/16/2022 at 1:30 pm) Discharge Diet: Soft Mechanical Discharge Activity: Limit activity as instructed Patient Instructions: Posterior Vaginal Repair (DC), OB Discharge Report, OB Food/Drug Interaction Guide, Opioid Safety Activity Restrictions/Additional Instructions: 1. Please call [facility] on next working day to make your post-operative appointment in 2 weeks. 2. Please stay home until you come back to the clinic on first post-hospatilization check up. 3. Please follow instructions on your medications CAREFULLY. 4. If you have abdominal incision, do not cover it unless dressing is necessary because of drainage. OK to shower, but avoid bath. Leave steri-strips until they fall off. If they are still on one week after surgery, you may remove them. 5. If you had vaginal surgery or vaginal repair, Dr. Carballo may instruct you to take SITZ bath. 6. Yellow, blood tinged odorous vaginal discharge is usually normal after hysterectomy or vaginal surgeries. 7. No SEXUAL INTERCOURSE, tampons, or douches until you are completely released from the post-operative care. 8. Avoid constipation by eating right and maybe using some Metamucil or Milk of Magnesia. 9. All prescription refills are given during the working hours. Please do no wait till it runs out. Call the clinic at [phone] before your medication runs out. The clinic will get in touch with your doctor to prescribe medications if necessary. 10. Please remain within 40 mile radius from our hospital because emergencies do happen now and then during the post-operative period. 11. If you have stairs at home, take one step at a time slowly and minimize the number of trips. It helps to stay in one floor for the next few days. No lifting except what you can lift by one hand until you are released from the post-operative care. 12. Driving is discouraged until you are well healed. It may be 3-4 weeks before you feel strong enough to drive. You should be able to turn and look through the rear window without pain and you should be able to push the brake pedal very hard without pain before you drive. No fast rules, but SAFETY should be your primary concern. DO NOT drive if you are on sedating medications such as narcotics. 13. Call the clinic (during working hours) to make urgent appointment or go to the Emergency room, if any of the following occurs: i. Vaginal bleeding becomes heavy, more than a period. ii. Incision becomes red and sore, or drains pus. iii. Your TEMPERATURE is over 100.4F or you have chill. iv. IV site becomes red and swollen (a little ``knot?? is usually OK) v. Persistent nausea and vomiting vi. Persistent constipation or diarrhea vii. Rash or allergic reaction to medications. Discharge Attestations CLIENT RELATIONS SPECIALIST Time Spent in Discharge Care*: greater than 30 min Coding Level of Care Code Acute Code for Chg Fwd
[2023-10-07 09:51] VITALS: BP 105/61; PULSE 56; RESP 18; TEMP 37.1
[2023-10-07 10:05] VITALS: BP 105/61; PULSE 56; RESP 18; TEMP 37.1
== END 2023-10-07 10:05 | disposition home or self-care (01) ==
LOC: OBGYN 12:29
PROVIDERS: Admitting Provider Obstetrics & Gynecology; PCP Nurse Practitioner Family; Visit Provider Obstetrics & Gynecology
PROC: (CPT 57250; principal; 2023-10-06 08:00)
DX: N81.6 Rectocele (principal); I10 Essential (primary) hypertension; K21.9 Gastro-esophageal reflux disease without esophagitis; E78.5 Hyperlipidemia, unspecified; Z79.82 Long term (current) use of aspirin
CPT/HCPCS: 57250; 36415; 80053; 81003; 85025; 85027; 86850; 86900; A4216; G0378; J0690; J1100; J1650; J1885; J2405; J2704; J3010; J7030; J7040; J7121

== ENCOUNTER 2024-02-16 13:21 | Outpatient (CLI) | payer MEDICARE, OTHER, SELFPAY ==
--- NOTE | 2024-02-16 13:27 | XR_ITS ---
WS: [id number] DEXA (DUAL ENERGY X-RAY ABSORPTIOMETRY) Bone mineral density was performed using a [place] machine. HISTORY: ASYMPTOMATIC MENOPAUSAL STATE COMPARISON: None available. Lumbar spine BMD (L1-L4): 1.078 g/cm2 T score: -0.9 Z score: 0.5 Total hip BMD: Left: 0.801 g/cm2. T score: -1.6 Z score: -0.3 Right: 0.849 g/cm2. T score: -1.3 Z score: 0.0 10 year probability of a major osteoporotic fracture is 19%. XR/XR DEXA axial skeleton* 08474 IMPRESSION: OSTEOPENIA based upon the WHO classification for females.
== END 2024-02-16 13:22 | disposition home or self-care (01) ==
LOC: RAD 13:22
PROVIDERS: PCP Nurse Practitioner Family; Visit Provider Nurse Practitioner Family
DX: Z78.0 Asymptomatic menopausal state (principal); M85.80 Other specified disorders of bone density and structure, unspecified site
CPT/HCPCS: 77080

== ENCOUNTER → 2024-02-29 09:17 | Outpatient (BNVA) | payer MEDICARE, OTHER, SELFPAY | PROVIDERS: PCP Nurse Practitioner Family; Visit Provider Nurse Practitioner Family | DX: D48.5 Neoplasm of uncertain behavior of skin (principal); L81.4 Other melanin hyperpigmentation; D22.5 Melanocytic nevi of trunk; I83.93 Asymptomatic varicose veins of bilateral lower extremities; L82.1 Other seborrheic keratosis | CPT/HCPCS: 11104; 99203 ==

== ENCOUNTER → 2024-03-10 08:45 | Outpatient (BNVA) | payer MEDICARE, OTHER, SELFPAY | PROVIDERS: PCP Nurse Practitioner Family; Visit Provider Nurse Practitioner Family | DX: L72.0 Epidermal cyst (principal); L81.4 Other melanin hyperpigmentation; D22.5 Melanocytic nevi of trunk; Z48.02 Encounter for removal of sutures | CPT/HCPCS: 99213 ==

== ENCOUNTER 2025-01-02 11:28 | Outpatient (CLI) | payer MEDICARE, OTHER, SELFPAY ==
--- NOTE | 2025-01-02 11:40 | MM_ITS ---
WS: [id number] BILATERAL 3D TOMOSYNTHESIS DIGITAL SCREENING MAMMOGRAPHY WITH CAD CLINICAL INFORMATION: Z12.31 - Encounter for screening mammogram for malignant ... HISTORY: Screening mammogram. No current complaints. COMPARISON: 2022 TECHNIQUE: Bilateral CC and MLO views. FINDINGS: Scattered fibroglandular densities bilaterally. No suspicious focal mass, asymmetry, calcifications, or architectural distortion. No evidence of malignancy. Vascular calcification MM/MM scr BI tomosynthesis 22256 IMPRESSION: DENSITY: There are scattered areas of fibroglandular density. BI-RADS: 2 - Benign. FOLLOW UP: 1 Year Follow-up Recommend return to annual screening mammography.
== END 2025-01-02 11:29 | disposition home or self-care (01) ==
PROVIDERS: PCP Family Medicine; Visit Provider Obstetrics & Gynecology
DX: Z12.31 Encounter for screening mammogram for malignant neoplasm of breast (principal); R92.323 Mammographic fibroglandular density, bilateral breasts; R92.1 Mammographic calcification found on diagnostic imaging of breast
CPT/HCPCS: 77063; 77067

== ENCOUNTER → 2025-03-27 10:48 | Outpatient (BNVA) | payer MEDICARE, OTHER, SELFPAY | PROVIDERS: PCP Family Medicine; Visit Provider Nurse Practitioner Family | DX: L82.1 Other seborrheic keratosis (principal); L81.4 Other melanin hyperpigmentation; D22.5 Melanocytic nevi of trunk; I83.93 Asymptomatic varicose veins of bilateral lower extremities | CPT/HCPCS: 99213 ==

== ENCOUNTER → 2025-04-24 09:58 | Outpatient (BNVA) | payer MEDICARE, OTHER, SELFPAY | PROVIDERS: PCP Family Medicine; Visit Provider Family Medicine | DX: I10 Essential (primary) hypertension (principal); E78.00 Pure hypercholesterolemia, unspecified | CPT/HCPCS: 80053; 80061; 84443; 85025 ==